=== PATIENT | female | born 1995 | race African-American/Black ===

== ENCOUNTER 2018-09-16 10:39 | Emergency (ER) | payer OTHER ==
[2018-09-16 10:50] VITALS: BMI 18.0
[2018-09-16 11:40] LABS: BASOPHILS 0.1 % (0-2); EOSINOPHILS 0 % (0-7); HEMATOCRIT 30.8 % (36.0-48.0); HEMOGLOBIN 9.9 g/dL (12-16); IMMATURE GRANULOCYTES 0.3 % (0-5); LYMPHOCYTES 21.1 % (15-50); MCH 26.2 pg (26.0-34.0); MCHC 32.1 g/dL (31.0-37.0); MCV 81.5 fL (80.0-100.0); MEAN PLATELET VOLUME 9.4 fL (7.4-10.4); MONOCYTES 9.4 % (2-11); NEUTROPHILS 69.1 % (40-80); PLATELET COUNT 380 10x3/uL (130-400); RBC 3.78 10x6/uL (4.00-5.40); RDW 14.4 % (11.5-14.5); WBC 6.9 10x3/uL (4.8-10.8)
[2018-09-16 11:46] LABS: HCG URINE NEGATIVE (NEGATIVE)
[2018-09-16 11:52] LABS: APPEARANCE CLEAR (CLEAR); BILIRUBIN NEGATIVE (NEGATIVE); COLOR YELLOW (YELLOW); GLUCOSE NEGATIVE (NEGATIVE); KETONE LARGE mg/dL (NEGATIVE); NITRITE NEGATIVE (NEGATIVE); PROTEIN TRACE mg/dL (NEGATIVE); UROBILINOGEN NORMAL (NORMAL)
[2018-09-16 11:53] LABS: AMORPHOUS SEDIMENT <1+ /lpf (NONE SEEN); BACTERIA MANY /hpf (NONE SEEN); EPITHELIAL CELLS 0-5 /hpf (0-5); MUCUS >1+ /lpf (NONE SEEN)
[2018-09-16 12:00] LABS: ALKALINE PHOSPHATASE 92 U/L (46-116); ALT (SGPT) 13 U/L (10-68); BILIRUBIN - TOTAL 0.37 mg/dL (0.2-1.3); CALC OSMOLALITY 272 mosm/kg (275-300); CALCIUM 8.9 mg/dL (8.5-10.1); CARBON DIOXIDE 25.1 mmol/L (21.0-32.0); CHLORIDE - SERUM 102 mmol/L (98-107); CREATININE - SERUM 0.7 mg/dL (0.6-1.3); GLUCOSE 87 mg/dL (74-106); POTASSIUM - SERUM 3.4 mmol/L (3.5-5.1); PROTEIN - SERUM 8.8 g/dL (6.4-8.2); SODIUM 138 mmol/L (136-145); UREA NITROGEN 6 mg/dL (7-18); eGFR NON AFRICAN AMERICAN > 90 mL/min (90-120)
[2018-09-16] MEDS ORDERED: ZOFRAN ODT4 MG/UDTAB PO (13:14)
[2018-09-16] MEDS ORDERED: MACROBID100 MG PO (13:14)
[2018-09-16 13:52] VITALS: BP 100/53
== END 2018-09-16 13:56 | disposition home or self-care (01) ==
LOC: EDSEX 10:39 → D.ER 10:39
PROVIDERS: Family Medicine
DX: N39.0 Urinary tract infection, site not specified (principal); D64.9 Anemia, unspecified; R50.9 Fever, unspecified

== ENCOUNTER 2018-10-16 17:04 | Emergency (ER) | payer OTHER ==
[~2018-10-16 17:04] MED LIST: MACROBID100 MG PO; ZOFRAN ODT4 MG/UDTAB PO
[2018-10-16 17:14] VITALS: BMI 18.0
[2018-10-16] MEDS ORDERED: TORADOL10 MG PO (18:18)
[2018-10-16 19:23] VITALS: BP 116/63
== END 2018-10-16 19:24 | disposition home or self-care (01) ==
LOC: D.ER 17:04
DX: M54.2 Cervicalgia (principal); V43.52XA Car driver injured in collision with other type car in traffic accident, initial encounter; Y93.89 Activity, other specified; Y92.410 Unspecified street and highway as the place of occurrence of the external cause